=== PATIENT | male | born 1955 | race Caucasian/White ===

== ENCOUNTER 2021-09-16 08:30 | Outpatient (RCR) | payer MEDICARE, BC, SELFPAY ==
[2021-08-20 11:04] VITALS: BP 135/62; PULSE 62; RESP 16; TEMP 36
[2021-09-02 09:00] VITALS: BP 116/75; PULSE 72; RESP 14; TEMP 35.9; O2SAT 95
--- NOTE | 2021-09-13 13:03 | ONC.NURNOTE ---
Authorization: User: Yessy Osman Date: 02/09/21 11:18 Type: Eligibility Determination Note... Request received from [facility] for prior authorization of Prolastin. Pt has Medicare and [facility] [place]. Per CMS.gov no prior authorization is required. Services are based on medical necessity and follow Medicare guidelines. [place] follows medicare guidelines.
[2021-09-16 08:34] VITALS: BP 120/63; PULSE 63; RESP 16; TEMP 35.9; O2SAT 94
[2021-09-16 08:51] VITALS: BP 120/63; PULSE 63; RESP 18; TEMP 35.9; O2SAT 94
[2021-09-16] MEDS: 0.9 % SODIUM CHLORIDE 250 ml IV (08:59)
[2021-09-16] MEDS: SODIUM CHLORIDE 0.9 % (FLUSH) 10 ML SYRINGE IVF (08:59)
== END 2021-09-19 23:59 | disposition home or self-care (01) ==
LOC: CCIC 08:30
PROVIDERS: PCP Family Medicine; Visit Provider Clinical Nurse Specialist
DX: E88.01 Alpha-1-antitrypsin deficiency (principal)
CPT/HCPCS: 96365; J0256; J7050

== ENCOUNTER 2022-03-18 09:30 | Outpatient (RCR) | payer MEDICARE, BC, SELFPAY ==
[2021-09-30 09:57] VITALS: BP 117/75; PULSE 77; RESP 16; TEMP 36.5; O2SAT 91
[2021-09-30] MEDS: 0.9 % SODIUM CHLORIDE 250 ml IV (10:33)
[2021-09-30] MEDS: SODIUM CHLORIDE 0.9 % (FLUSH) 10 ML SYRINGE IVF (10:33)
[2021-10-14 08:45] VITALS: BP 115/62; PULSE 69; RESP 16; TEMP 36.1; O2SAT 94
[2021-10-28 09:28] VITALS: BP 123/83; PULSE 78; RESP 16; TEMP 35.9; O2SAT 93
[2021-10-28] MEDS: 0.9 % SODIUM CHLORIDE 250 ml IV (09:51)
[2021-11-11 13:03] VITALS: BP 127/84; PULSE 77; RESP 16; TEMP 36.2; O2SAT 94
[2021-11-11] MEDS: 0.9 % SODIUM CHLORIDE 250 ml IV (13:41)
[2021-11-11] MEDS: SODIUM CHLORIDE 0.9 % (FLUSH) 10 ML SYRINGE IVF (13:41)
[2021-11-25 09:30] VITALS: BP 134/84; PULSE 81; RESP 14; TEMP 36.1; O2SAT 94
[2021-11-25] MEDS: SODIUM CHLORIDE 0.9 % (FLUSH) 10 ML SYRINGE IVF (10:11)
[2021-11-25] MEDS: 0.9 % SODIUM CHLORIDE 250 ml IV (10:11)
[2021-12-09 09:38] VITALS: BP 118/73; PULSE 95; RESP 16; TEMP 36.1; O2SAT 95
[2021-12-09] MEDS: SODIUM CHLORIDE 0.9 % (FLUSH) 10 ML SYRINGE IVF (10:05)
[2021-12-09] MEDS: 0.9 % SODIUM CHLORIDE 250 ml IV (10:05)
[2021-12-23 09:35] VITALS: BP 133/68; PULSE 68; RESP 16; TEMP 36.2; O2SAT 97
[2022-01-06 09:36] VITALS: BP 140/79; PULSE 66; RESP 16; TEMP 35.8; O2SAT 94
[2022-01-06] MEDS: SODIUM CHLORIDE 0.9 % (FLUSH) 10 ML SYRINGE IVF (10:01)
[2022-01-06] MEDS: 0.9 % SODIUM CHLORIDE 250 ml IV (10:01)
[2022-01-20 09:32] VITALS: BP 151/80; PULSE 60; RESP 16; TEMP 35.6; O2SAT 94
[2022-01-20] MEDS: SODIUM CHLORIDE 0.9 % (FLUSH) 10 ML SYRINGE IVF (09:54)
[2022-01-20] MEDS: 0.9 % SODIUM CHLORIDE 250 ml IV (09:54)
[2022-02-03 09:40] VITALS: BP 138/65; PULSE 63; RESP 16; TEMP 36.4; O2SAT 94
[2022-02-03] MEDS: 0.9 % SODIUM CHLORIDE 250 ml IV (09:53)
[2022-02-03] MEDS: SODIUM CHLORIDE 0.9 % (FLUSH) 10 ML SYRINGE IVF (09:54)
--- NOTE | 2022-02-03 13:55 | URNOTE ---
Received rquest for prior auth for Prolastin_C ([id number]). Pt has medicare and [place] supplement. Prior authorization is not required as services are based on medical necessity and follow medicare guidelines.
[2022-03-04 14:10] VITALS: BP 128/80; PULSE 73; RESP 18; TEMP 36.2; O2SAT 94
[2022-03-04] MEDS: SODIUM CHLORIDE 0.9 % (FLUSH) 10 ML SYRINGE IVF (14:33)
[2022-03-18 09:41] VITALS: BP 113/72; PULSE 75; RESP 16; TEMP 35.4; O2SAT 94
== END 2022-03-29 23:59 | disposition home or self-care (01) ==
LOC: CCIC 09:30
PROVIDERS: PCP Family Medicine; Referring Provider Family Medicine; Visit Provider Clinical Nurse Specialist
DX: E88.01 Alpha-1-antitrypsin deficiency (principal)
CPT/HCPCS: 96365; J0256; J7050

== ENCOUNTER 2022-09-14 09:30 | Outpatient (RCR) | payer MEDICARE, BC, SELFPAY ==
[2022-03-31 11:50] VITALS: BP 142/70; PULSE 81; RESP 18; TEMP 35.8; O2SAT 96
[2022-04-14 11:16] VITALS: BP 124/57; PULSE 68; RESP 16; TEMP 36.2; O2SAT 95
[2022-04-27 08:24] VITALS: BP 121/72; PULSE 76; RESP 18; TEMP 35.9; O2SAT 94
[2022-05-12 09:10] VITALS: BP 119/83; PULSE 66; RESP 16; TEMP 36.2; O2SAT 95
--- NOTE | 2022-05-12 09:47 | ONC.NURNOTE ---
Noticed patient pulse was irregular at times. Would go from 43 to 73. Patient denies increase of shortness of breath, chest pain, dizziness, light headedness. Does take Diltiazem for irregular heart rate in the past. Patient has an appointment with PCP next week for a physical and will mention this at his appointment. Educated patient to go to ER if he develops shortness of breath, dizziness, light headedness, or chest pain. Patient verbalized understanding.
[2022-05-26 09:03] VITALS: BP 127/83; PULSE 78; RESP 16; TEMP 35.3; O2SAT 96
[2022-06-08 09:13] VITALS: BP 110/66; PULSE 90; RESP 16; TEMP 35.6; O2SAT 95
[2022-06-23 10:12] VITALS: BP 130/69; PULSE 78; RESP 16; TEMP 35.9; O2SAT 95
[2022-07-06 09:37] VITALS: BP 126/68; PULSE 76; RESP 16; TEMP 36.2; O2SAT 96
[2022-07-20 09:40] VITALS: BP 124/78; PULSE 72; RESP 16; TEMP 36.2; O2SAT 95
[2022-07-20] MEDS: 0.9 % SODIUM CHLORIDE 250 ml IV (10:15)
[2022-08-03 09:42] VITALS: BP 126/78; PULSE 79; RESP 16; TEMP 35.9; O2SAT 93
[2022-08-17 09:31] VITALS: BP 133/73; PULSE 67; RESP 16; TEMP 35.8; O2SAT 94
[2022-08-31 08:51] VITALS: BP 123/76; PULSE 68; RESP 16; TEMP 35.9; O2SAT 94
[2022-08-31] MEDS: 0.9 % SODIUM CHLORIDE 250 ml IV (10:32)
[2022-09-14 09:32] VITALS: BP 133/83; PULSE 56; RESP 16; TEMP 36.1; O2SAT 94
[2022-09-14] MEDS: 0.9 % SODIUM CHLORIDE 250 ml IV (10:20)
== END 2022-09-27 23:59 | disposition home or self-care (01) ==
LOC: CCIC 09:30
PROVIDERS: PCP Family Medicine; Referring Provider Family Medicine; Visit Provider Clinical Nurse Specialist
DX: E88.01 Alpha-1-antitrypsin deficiency (principal)
CPT/HCPCS: 96365; J0256; J7050

== ENCOUNTER 2023-03-17 09:00 | Outpatient (RCR) | payer MEDICARE, BC, SELFPAY ==
[2022-09-30 09:19] VITALS: BP 118/74; PULSE 68; RESP 18; TEMP 36.5; O2SAT 93
[2022-10-14 09:42] VITALS: BP 122/67; PULSE 75; RESP 16; TEMP 36.1; O2SAT 94
[2022-10-28 09:30] VITALS: BP 131/81; PULSE 74; RESP 14; TEMP 36.1; O2SAT 93
[2022-11-11] MEDS: 0.9 % SODIUM CHLORIDE 250 ml IV (09:15)
[2022-11-11 09:16] VITALS: BP 119/76; PULSE 72; RESP 16; TEMP 36.1; O2SAT 92
[2022-11-25 09:10] VITALS: BP 116/78; PULSE 66; RESP 16; TEMP 36; O2SAT 92
[2022-11-25] MEDS: 0.9 % SODIUM CHLORIDE 250 ml IV (09:39)
[2022-12-09 09:07] VITALS: BP 106/74; PULSE 85; RESP 16; TEMP 35.5; O2SAT 92
[2022-12-09] MEDS: 0.9 % SODIUM CHLORIDE 250 ml IV (09:41)
[2022-12-09] MEDS: SODIUM CHLORIDE 0.9 % (FLUSH) 10 ML SYRINGE IVF (15:14)
[2022-12-23 08:37] VITALS: BP 111/64; PULSE 69; RESP 16; TEMP 36.1; O2SAT 94
[2022-12-23] MEDS: 0.9 % SODIUM CHLORIDE 250 ml IV (09:14)
[2022-12-23] MEDS: SODIUM CHLORIDE 0.9 % (FLUSH) 10 ML SYRINGE IVF (09:14)
[2023-01-06 10:10] VITALS: BP 131/84; PULSE 79; RESP 16; TEMP 35.6; O2SAT 96
[2023-01-06] MEDS: 0.9 % SODIUM CHLORIDE 250 ml IV (15:16)
[2023-01-06] MEDS: SODIUM CHLORIDE 0.9 % (FLUSH) 10 ML SYRINGE IVF (15:16)
[2023-01-20] MEDS: SODIUM CHLORIDE 0.9 % (FLUSH) 10 ML SYRINGE IVF (09:00)
[2023-01-20 09:09] VITALS: BP 137/89; PULSE 67; RESP 16; TEMP 35.1; O2SAT 96
[2023-01-20] MEDS: 0.9 % SODIUM CHLORIDE 250 ml IV (09:20)
--- NOTE | 2023-01-31 11:14 | URNOTE ---
Prior authorization is not required for Prolastin-C ([id number]). Pt has medicare. Services are based on medical necessity and follow medicare guidelines.
[2023-02-03 09:12] VITALS: BP 129/79; PULSE 75; RESP 16; TEMP 36.2; O2SAT 94
[2023-02-17 09:21] VITALS: BP 101/71; PULSE 75; RESP 16; TEMP 35.7; O2SAT 94
[2023-02-17] MEDS: 0.9 % SODIUM CHLORIDE 250 ml IV (09:58)
[2023-03-03 09:01] VITALS: BP 128/78; PULSE 68; RESP 16; TEMP 36.7; O2SAT 92
[2023-03-03] MEDS: SODIUM CHLORIDE 0.9 % (FLUSH) 10 ML SYRINGE IVF (09:23)
[2023-03-03] MEDS: 0.9 % SODIUM CHLORIDE 250 ml IV (09:23)
[2023-03-17 09:01] VITALS: BP 137/76; PULSE 83; RESP 16; TEMP 35.4; O2SAT 94
--- NOTE | 2023-03-17 09:31 | PC.NURSE ---
RN noted that pt's orders are about to . Called [facility] to request new orders and RN was informed that pt's provider, Kamron Colon APRN CNP was no longer with [facility] and that pt will need an appt with a new provider in order to get new orders. Pt was notified and given the phone number to call and schedule. Pt's next visit is 03/31/2023. Orders 04/06/2023. He will be due on 04/14/2023. Pt is aware of this timeline. Will await new orders prior to 04/14 infusion. YVONNE milton through 01/2024.
[2023-03-17] MEDS: 0.9 % SODIUM CHLORIDE 250 ml IV (09:44)
[2023-03-17] MEDS: SODIUM CHLORIDE 0.9 % (FLUSH) 10 ML SYRINGE IVF (09:44)
== END 2023-03-29 23:59 | disposition home or self-care (01) ==
LOC: CCIC 09:00
PROVIDERS: PCP Family Medicine; Referring Provider Family Medicine; Visit Provider Clinical Nurse Specialist
DX: E88.01 Alpha-1-antitrypsin deficiency (principal)
CPT/HCPCS: 96365; J0256; J7050

== ENCOUNTER 2023-09-15 09:00 | Outpatient (RCR) | payer MEDICARE, BC, SELFPAY ==
[2023-03-31 09:05] VITALS: BP 106/76; PULSE 72; RESP 16; TEMP 35.8; O2SAT 100
[2023-04-14 09:21] VITALS: BP 121/80; PULSE 86; RESP 16; TEMP 36.1; O2SAT 95
[2023-04-28 09:06] VITALS: BP 129/83; PULSE 84; RESP 16; TEMP 35.7; O2SAT 95
[2023-04-28] MEDS: SODIUM CHLORIDE 0.9 % (FLUSH) 10 ML SYRINGE IVF (09:32)
[2023-04-28] MEDS: 0.9 % SODIUM CHLORIDE 250 ml IV (09:32)
[2023-05-12 09:07] VITALS: BP 128/81; PULSE 85; RESP 17; TEMP 35.9; O2SAT 92
[2023-05-12] MEDS: SODIUM CHLORIDE 0.9 % (FLUSH) 10 ML SYRINGE IVF (10:00)
[2023-05-12] MEDS: 0.9 % SODIUM CHLORIDE 250 ml IV (10:00)
[2023-05-26 09:00] VITALS: BP 127/86; PULSE 71; RESP 16; TEMP 35.7; O2SAT 94
[2023-05-26] MEDS: SODIUM CHLORIDE 0.9 % (FLUSH) 10 ML SYRINGE IVF (09:34)
[2023-05-26] MEDS: 0.9 % SODIUM CHLORIDE 250 ml IV (09:34)
[2023-06-09 10:10] VITALS: BP 122/78; PULSE 80; RESP 16; TEMP 35.6; O2SAT 94
[2023-06-10 18:23] LABS: Alpha-1-Antitrypsin 65 mg/dL (90-200)
[2023-06-23 08:05] VITALS: BP 118/78; PULSE 69; RESP 18; TEMP 35.8; O2SAT 92
[2023-06-23] MEDS: 0.9 % SODIUM CHLORIDE 250 ml IV (08:37)
[2023-07-07 09:28] VITALS: BP 117/80; PULSE 71; RESP 16; TEMP 36.9; O2SAT 92
[2023-07-07] MEDS: 0.9 % SODIUM CHLORIDE 250 ml IV (10:18)
[2023-07-07] MEDS: SODIUM CHLORIDE 0.9 % (FLUSH) 10 ML SYRINGE IVF (10:18)
[2023-07-21 09:03] VITALS: BP 121/80; PULSE 77; RESP 17; TEMP 37; O2SAT 90
[2023-07-21] MEDS: SODIUM CHLORIDE 0.9 % (FLUSH) 10 ML SYRINGE IVF (10:07)
[2023-07-21] MEDS: 0.9 % SODIUM CHLORIDE 250 ml IV (10:07)
[2023-08-04 09:02] VITALS: BP 125/77; PULSE 75; RESP 16; TEMP 36.3; O2SAT 95
[2023-08-04] MEDS: 0.9 % SODIUM CHLORIDE 250 ml IV (09:36)
[2023-08-04] MEDS: SODIUM CHLORIDE 0.9 % (FLUSH) 10 ML SYRINGE IVF (09:36)
[2023-08-18 09:00] VITALS: BP 133/83; PULSE 61; RESP 16; TEMP 36.1; O2SAT 92
[2023-08-18] MEDS: SODIUM CHLORIDE 0.9 % (FLUSH) 10 ML SYRINGE IVF (09:18)
[2023-08-18] MEDS: 0.9 % SODIUM CHLORIDE 250 ml IV (09:18)
[2023-09-01 09:22] VITALS: BP 131/74; PULSE 77; RESP 16; TEMP 36.1; O2SAT 93
[2023-09-01] MEDS: SODIUM CHLORIDE 0.9 % (FLUSH) 10 ML SYRINGE IVF (09:25)
[2023-09-01] MEDS: 0.9 % SODIUM CHLORIDE 250 ml IV (09:26)
--- NOTE | 2023-09-01 10:07 | ONC.NURNOTE ---
Pt updated nursing today and stated [facility] reviewed his labs and the plan is to continue Prolastin every 2 weeks. No changes.
[2023-09-15 09:14] VITALS: BP 128/85; PULSE 60; RESP 16; TEMP 35.9; O2SAT 94
[2023-09-15] MEDS: SODIUM CHLORIDE 0.9 % (FLUSH) 10 ML SYRINGE IVF (09:19)
[2023-09-15] MEDS: 0.9 % SODIUM CHLORIDE 250 ml IV (09:20)
== END 2023-09-27 23:59 | disposition home or self-care (01) ==
LOC: CCIC 09:00
PROVIDERS: PCP Family Medicine; Referring Provider Family Medicine; Visit Provider Clinical Nurse Specialist
DX: E88.01 Alpha-1-antitrypsin deficiency (principal)
CPT/HCPCS: 36415; 82103; 96365; J0256; J7050

== ENCOUNTER 2024-03-15 09:00 | Outpatient (RCR) | payer MEDICARE, BC, SELFPAY ==
[2023-09-29 09:09] VITALS: BP 126/81; PULSE 71; RESP 18; TEMP 35.9; O2SAT 91
[2023-09-29] MEDS: 0.9 % SODIUM CHLORIDE 250 ml IV (09:43)
[2023-09-29] MEDS: SODIUM CHLORIDE 0.9 % (FLUSH) 10 ML SYRINGE IVF (09:44)
[2023-10-13 09:12] VITALS: BP 107/72; PULSE 76; RESP 16; TEMP 36.3; O2SAT 92
[2023-10-13] MEDS: 0.9 % SODIUM CHLORIDE 250 ml IV (09:16)
[2023-10-13] MEDS: SODIUM CHLORIDE 0.9 % (FLUSH) 10 ML SYRINGE IVF (09:17)
[2023-10-27 14:15] VITALS: BP 118/79; PULSE 77; RESP 16; TEMP 35.9; O2SAT 94
[2023-10-27] MEDS: SODIUM CHLORIDE 0.9 % (FLUSH) 10 ML SYRINGE IVF (14:50)
[2023-10-27] MEDS: 0.9 % SODIUM CHLORIDE 250 ml IV (14:50)
[2023-11-10 09:06] VITALS: BP 131/77; PULSE 67; RESP 16; TEMP 36.3; O2SAT 93
[2023-11-10] MEDS: SODIUM CHLORIDE 0.9 % (FLUSH) 10 ML SYRINGE IVF (09:35)
[2023-11-10] MEDS: 0.9 % SODIUM CHLORIDE 250 ml IV (09:36)
[2023-11-24 09:08] VITALS: BP 118/82; PULSE 72; RESP 16; TEMP 36.1; O2SAT 92
[2023-11-24] MEDS: SODIUM CHLORIDE 0.9 % (FLUSH) 10 ML SYRINGE IVF (09:42)
[2023-11-24] MEDS: 0.9 % SODIUM CHLORIDE 250 ml IV (09:42)
[2023-12-08 09:22] VITALS: BP 127/87; PULSE 74; RESP 16; TEMP 36.1; O2SAT 90
[2023-12-08] MEDS: SODIUM CHLORIDE 0.9 % (FLUSH) 10 ML SYRINGE IVF (10:51)
[2023-12-22 09:11] VITALS: BP 129/85; PULSE 78; RESP 16; TEMP 36.5; O2SAT 94
[2024-01-05 09:06] VITALS: BP 131/86; PULSE 80; RESP 16; TEMP 35.6; O2SAT 92
[2024-01-05] MEDS: SODIUM CHLORIDE 0.9 % (FLUSH) 10 ML SYRINGE IVF (09:35)
[2024-01-19 09:09] VITALS: BP 144/83; PULSE 75; RESP 16; TEMP 36; O2SAT 94
--- NOTE | 2024-01-29 14:24 | URNOTE ---
Prior auth is not required for Prolastin -C. [facility] Services are based on medical necessity and follow medicare guidelines.
[2024-02-02 09:43] VITALS: BP 137/94; PULSE 76; RESP 16; TEMP 34.9; O2SAT 92
[2024-02-02] MEDS: SODIUM CHLORIDE 0.9 % (FLUSH) 10 ML SYRINGE IVF (10:28)
[2024-02-16 09:13] VITALS: BP 112/78; PULSE 73; RESP 16; TEMP 36; O2SAT 93
[2024-02-16] MEDS: SODIUM CHLORIDE 0.9 % (FLUSH) 10 ML SYRINGE IVF (09:41)
[2024-03-01 09:01] VITALS: BP 121/71; PULSE 64; RESP 16; TEMP 36.6; O2SAT 94
[2024-03-01] MEDS: 0.9 % SODIUM CHLORIDE 500 ML IV (09:36)
[2024-03-01] MEDS: SODIUM CHLORIDE 0.9 % (FLUSH) 10 ML SYRINGE IVF (09:37)
[2024-03-15 09:15] VITALS: BP 147/83; PULSE 92; RESP 18; TEMP 36.4; O2SAT 90
[2024-03-15] MEDS: SODIUM CHLORIDE 0.9 % (FLUSH) 10 ML SYRINGE IVF (09:57)
[2024-03-15] MEDS: 0.9 % SODIUM CHLORIDE 500 ML IV (09:57)
== END 2024-03-27 23:59 | disposition home or self-care (01) ==
LOC: CCIC 09:00
PROVIDERS: PCP Family Medicine; Referring Provider Family Medicine; Visit Provider Clinical Nurse Specialist
DX: E88.01 Alpha-1-antitrypsin deficiency (principal)
CPT/HCPCS: 96365; J0256; J7030; J7050

== ENCOUNTER 2024-09-13 09:00 | Outpatient (RCR) | payer MEDICARE, BC, SELFPAY ==
[2024-03-29 09:16] VITALS: BP 113/70; PULSE 79; RESP 16; TEMP 36.2; O2SAT 97
[2024-03-29] MEDS: [UNRECOGNIZED DRUG - MIXTURE] 360 MG IVPB (09:56)
[2024-04-12 09:07] VITALS: BP 126/85; PULSE 78; RESP 19; TEMP 36.9; O2SAT 92
[2024-04-12] MEDS: SODIUM CHLORIDE 0.9 % (FLUSH) 10 ML SYRINGE IVF (09:34)
[2024-04-12] MEDS: [UNRECOGNIZED DRUG - MIXTURE] 360 MG IVPB (09:47)
[2024-04-26 09:16] VITALS: BP 121/86; PULSE 71; RESP 16; TEMP 36.3; O2SAT 93
[2024-04-26] MEDS: [UNRECOGNIZED DRUG - MIXTURE] 360 MG IVPB (09:44)
[2024-04-26] MEDS: SODIUM CHLORIDE 0.9 % (FLUSH) 10 ML SYRINGE IVF (09:44)
--- NOTE | 2024-05-01 14:39 | URNOTE ---
Prior auth is not required for Prolastin -C ([id number]). [facility]. Services are based on medical necessity and follow medicare guidelines. No YVONNE velarde. per [facility] 04/30/2024 Ref#[id number].
[2024-05-13 09:16] VITALS: BP 123/83; PULSE 78; RESP 16; TEMP 35.6; O2SAT 92
[2024-05-13] MEDS: SODIUM CHLORIDE 0.9 % (FLUSH) 10 ML SYRINGE IVF (09:24)
[2024-05-13] MEDS: [UNRECOGNIZED DRUG - MIXTURE] 360 MG IVPB (09:35)
[2024-05-24 09:11] VITALS: BP 119/78; PULSE 72; RESP 19; TEMP 36.4; O2SAT 94
[2024-05-24] MEDS: SODIUM CHLORIDE 0.9 % (FLUSH) 10 ML SYRINGE IVF (09:35)
[2024-05-24] MEDS: [UNRECOGNIZED DRUG - MIXTURE] 360 MG IVPB (09:37)
[2024-06-07 09:10] VITALS: BP 117/81; PULSE 74; RESP 18; TEMP 36.4; O2SAT 93
[2024-06-07] MEDS: SODIUM CHLORIDE 0.9 % (FLUSH) 10 ML SYRINGE IVF (09:45)
[2024-06-07] MEDS: [UNRECOGNIZED DRUG - MIXTURE] 320 MG IVPB (09:45)
[2024-06-21 09:08] VITALS: BP 118/64; PULSE 70; RESP 18; TEMP 36.5; O2SAT 93
[2024-06-21] MEDS: [UNRECOGNIZED DRUG - MIXTURE] 320 MG IVPB (09:23)
[2024-06-21] MEDS: SODIUM CHLORIDE 0.9 % (FLUSH) 10 ML SYRINGE IVF (09:23)
[2024-07-05 09:07] VITALS: BP 113/60; PULSE 70; RESP 16; TEMP 36.4; O2SAT 95
[2024-07-05] MEDS: SODIUM CHLORIDE 0.9 % (FLUSH) 10 ML SYRINGE IVF (09:15)
[2024-07-05] MEDS: [UNRECOGNIZED DRUG - MIXTURE] 320 MG IVPB (09:33)
[2024-07-19 09:04] VITALS: BP 128/85; PULSE 73; RESP 16; TEMP 36.4; O2SAT 92
[2024-07-19] MEDS: SODIUM CHLORIDE 0.9 % (FLUSH) 10 ML SYRINGE IVF (09:25)
[2024-07-19] MEDS: [UNRECOGNIZED DRUG - MIXTURE] 320 MG IVPB (09:37)
[2024-08-02 09:06] VITALS: BP 132/85; PULSE 76; RESP 16; TEMP 36.1; O2SAT 94
[2024-08-02] MEDS: SODIUM CHLORIDE 0.9 % (FLUSH) 10 ML SYRINGE IVF (09:25)
[2024-08-02] MEDS: [UNRECOGNIZED DRUG - MIXTURE] 360 MG IVPB (09:42)
[2024-08-16 09:06] VITALS: BP 119/80; PULSE 67; TEMP 36.3; O2SAT 92
[2024-08-16] MEDS: [UNRECOGNIZED DRUG - MIXTURE] 360 MG IVPB (09:29)
[2024-08-16] MEDS: SODIUM CHLORIDE 0.9 % (FLUSH) 10 ML SYRINGE IVF (09:30)
[2024-08-30 09:03] VITALS: BP 119/73; PULSE 63; RESP 16; TEMP 35.7; O2SAT 94
[2024-08-30] MEDS: SODIUM CHLORIDE 0.9 % (FLUSH) 10 ML SYRINGE IVF (09:24)
[2024-08-30] MEDS: [UNRECOGNIZED DRUG - MIXTURE] 360 MG IVPB (09:31)
[2024-09-13 09:02] VITALS: PULSE 68; RESP 16; TEMP 36.2; O2SAT 92
[2024-09-13 09:19] VITALS: BP 121/77; PULSE 68; RESP 16; TEMP 36.2; O2SAT 92
[2024-09-13] MEDS: [UNRECOGNIZED DRUG - MIXTURE] 360 MG IVPB (09:29)
[2024-09-13] MEDS: SODIUM CHLORIDE 0.9 % (FLUSH) 10 ML SYRINGE IVF (09:29)
== END 2024-09-25 23:59 | disposition home or self-care (01) ==
LOC: CCIC 09:00
PROVIDERS: PCP Family Medicine; Referring Provider Family Medicine; Visit Provider Clinical Nurse Specialist
DX: E88.01 Alpha-1-antitrypsin deficiency (principal)
CPT/HCPCS: 96365; J0256; J7050